=== PATIENT | female | born 1955 | race American Indian/Alaskan Native ===

== ENCOUNTER 2017-04-08 16:12 | Outpatient (CLI) | payer MEDICARE ==
--- NOTE | 2017-04-08 17:01 | XRay Report ---
RIGHT SHOULDER RADIOGRAPHS INDICATION: Right shoulder pain. COMPARISON: None similar. FINDINGS: Frontal and Y views of the right shoulder, 3 projections demonstrate normal humeral head contour, well positioned against the glenoid. Intact acromioclavicular joint with mild degenerative changes. Preserved scapular contour. Normal visualized soft tissues, right ribs and lung. CONCLUSION: Mild right AC joint arthropathy, as described. Please correlate. Thank you for the opportunity to participate in this patient's care.
== END 2017-04-08 16:13 | disposition home or self-care (01) ==
LOC: SPVIMAG 16:12
DX: M19.011 Primary osteoarthritis, right shoulder (principal); I10 Essential (primary) hypertension

== ENCOUNTER 2017-04-10 14:48 | Outpatient (CLI) | payer MEDICARE ==
--- NOTE | 2017-04-11 13:11 | Mammography Report ---
BILATERAL DIGITAL SCREENING MAMMOGRAM with CAD: 04/10/17 14:48:00 CLINICAL: Routine screening. COMPARISON:12/13/15 FINDINGS: The breasts are heterogeneously dense, which may obscure small masses. No mass, architectural distortion or suspicious calcifications. IMPRESSION: No mammographic evidence of malignancy. BI-RADS CATEGORY: 2 - - Benign RECOMMENDATION: Routine mammographic screening in one year. COMMENT: Patient follow-up letters are generated by our [employer] application.
== END 2017-04-10 14:49 | disposition home or self-care (01) ==
LOC: SPVWC 14:48
DX: Z12.31 Encounter for screening mammogram for malignant neoplasm of breast (principal); I10 Essential (primary) hypertension
CPT/HCPCS: 77067; G0202